=== PATIENT | female | born 1995 | race Caucasian/White ===

== ENCOUNTER 2023-04-27 19:26 | Emergency (ER) | payer MEDICAID ==
[~2023-04-27] VITALS: Ht 160 cm; Wt 57.3 kg
[2023-04-27 19:35] VITALS: BP 110/78; TEMP 98.6
[2023-04-27] MEDS ORDERED: DEXAMETHASONE 6 MG TABLET PO SCH (20:00)
[2023-04-27] MEDS ORDERED: DEXAMETHASONE 6 MG TABLET PO ONE (20:00)
[2023-04-27] MEDS ORDERED: ipratropium/albuterol 3ml nebule NEB ONE (20:00)
[2023-04-27 20:39] VITALS: PULSE 126; O2SAT 98
[2023-04-27] MEDS ORDERED: DEC1T PO (20:39)
[2023-04-27] MEDS ORDERED: ALBU6.7H14 INH (20:39)
[2023-04-27 20:49] VITALS: PULSE 140; RESP 18; O2SAT 99
[2023-04-27] MEDS ORDERED: aspirin 325mg tablet PO ONE (20:55)
== END 2023-04-27 21:32 | disposition left against medical advice (07) ==
LOC: ER 19:27
DX: U07.1 COVID-19 (principal); J45.901 Unspecified asthma with (acute) exacerbation; J45.909 Unspecified asthma, uncomplicated; Z79.899 Other long term (current) drug therapy
CPT/HCPCS: 71045; 94640; 94760; 99283